=== PATIENT | female | born 1975 | race Caucasian/White ===

== ENCOUNTER 2024-12-10 12:13 | Emergency (ER) | payer BC, SELFPAY ==
[2024-12-10 13:12] VITALS: BP 167/70; PULSE 61; RESP 16; TEMP 36.1; O2SAT 100
--- NOTE | 2024-12-10 13:13 | ED_ITS ---
HPI - General Adult General Chief complaint: Skin/Abscess/Foreign Body Stated complaint: Peritonsillar Abscess needs drain DR miranda Time Seen by Provider: 12/10/24 20:49 History of Present Illness ED Provider: Ernesto MAHONEY narrative: The patient is a 49-year-old woman who has had a sore throat for about 4 days. Today she went to an urgent care where she was felt to have a left-sided peritonsillar abscess. She was referred to the emergency room. No definite fever. She has had a bad sore throat in the left side. She feels that she is draining pus. Related Data Previous Rx's ?Medication ?Instructions ?Recorded acetaminophen 500 mg capsule 1,000 mg (2 x 500 mg) PO Q8H PRN 12/10/24 fever or pain #14 caps amoxicillin 875 mg-potassium 1 tab PO BID #16 tabs 03/26 clavulanate 125 mg tablet ibuprofen 400 mg tablet 400 mg PO Q6H PRN pain #14 t abs 12/10/24 ondansetron 4 mg disintegrating 4 mg PO Q6H PRN nausea and 12/10/24 tablet vomiting #10 tabs Allergies Allergy/AdvReac Type Severity Reaction Status Date / Time No Known Allergies Allergy Verified 12/10/24 13:14 Review of Systems 2 Review of Systems: Yes all other systems are reviewed and are negative [facility] Social History Social History Use of substances other than those prescribed or required for medical reasons: No Advance Directives: No Advance Directives Information Provided: No Physical Exam ED Vital Signs: Vital Signs - 24 hr 12/10/24 13:12 12/10/24 19:43 12/10/24 20:55 Temperature 97.0 F 97.3 F 97.8 F Pulse Rate 61 72 60 Respiratory Rate 16 14 20 Blood Pressure 167/70 H 148/60 H 159/88 H Pulse Oximetry 100 100 100 Oxygen Delivery Method Room Air Room Air Room Air 12/10/24 23:21 12/11/24 00:09 Temperature 97.1 F 97.1 F Pulse Rate 52 52 Respiratory Rate 16 16 Blood Pressure 139/65 139/65 Pulse Oximetry 98 98 Oxygen Delivery Method Room Air Room Air BMI result Body Mass Index 2.6 Const Other: The patient is awake and alert. She does not appear in overt distress. She is pleasant and cooperative. Orientation/consciousness: patient oriented x3 HENMT Other: The patient has a lot of swelling and erythema to the left soft palate with deviation of the uvula to the right. There was no trismus. Eyes General: appearance normal, both eyes and all related structures Neck Other: There is a mildly swollen and tender left jugulodigastric lymph node. Resp Effort & Inspection: normal respiratory effort Auscultation: clear to auscultation bilaterally Cardio Rate: regular rate Rhythm: regular rhythm Heart sounds: S1 normal heart sound present and S2 normal heart sound present Skin Other: The skin is dry and unremarkable General skin exam: no rashes or lesions noted Neuro General: patient oriented x3, tone normal, moves all extremities, no focal motor deficits and CN's II-XI intact bilaterally Extrem Other: There is no calf swelling or tenderness. No asymmetry. No peripheral edema. Course Course Course Narrative: This is a rapid medical exam performed by Rajiv Augustin NP: Additional HPI, ROS, PE not included below will be deferred to primary provider. Patient is a 49-year-old female presenting with throat irritation since Tue, then worsened on . Sent from urgent care for peritonsillar abscess. Significant left sided peritonsillar swelling, difficulty opening mouth for assessment. Fevers. Plan: Labs Medications Administered Discontinued Medications Generic Name Dose Route Start Last Admin Trade Name Freq PRN Reason Stop Dose Admin Amoxicillin/Clavulanate Potassium 875 mg 12/10/24 22:52 12/11/24 00:02 Amoxicillin/Potassium Clav 875 Mg Tablet PO 12/10/24 22:53 875 mg ONCE ONE Administration Dexamethasone Sodium Phosphate 10 mg 12/10/24 20:59 12/10/24 21:15 Dexamethasone Sod Phosphate 10 Mg/Ml Vial IVPUSH 12/10/24 21:00 10 mg ONCE ONE Administration Ampicillin Sodium/Sulbactam 100 mls @ 200 mls/hr 12/10/24 20:59 12/10/24 21:58 Sodium 3 gm/ Sodium Chloride IV 12/10/24 21:28 Infused ONCE ONE Infusion Sodium Chloride 1,000 mls @ 999 mls/hr 12/10/24 21:00 12/10/24 22:19 Ns IV 12/10/24 22:00 Infused .Q1H1M CHRAO Infusion Sodium Chloride 1,000 mls @ 999 mls/hr 12/10/24 22:30 12/11/24 00:10 Ns IV 12/10/24 23:30 Infused .Q1H1M CHARO Infusion Ketorolac Tromethamine 15 mg 12/10/24 20:59 12/10/24 21:15 Ketorolac Tromethamine 15 Mg/Ml Vial IVPUSH 12/10/24 21:00 15 mg ONCE ONE Administration Lidocaine/Epinephrine 10 ml 12/10/24 20:58 12/10/24 21:16 Lidocaine Hcl 1%/Epi 1:100,000 10 Ml Vial INFILTRATI 12/10/24 20:59 10 ml ONCE ONE Administration Morphine Sulfate 4 mg 12/10/24 21:59 12/10/24 22:07 Morphine Sulfate 4 Mg/Ml Cartridge IVPUSH 12/10/24 22:00 4 mg ONCE ONE Administration Protocol Ondansetron HCl 4 mg 12/10/24 21:59 12/10/24 22:08 Ondansetron Hcl 4 Mg/2 Ml Vial IVPUSH 12/10/24 22:00 4 mg ONCE ONE Administration Procedures Abscess I/D Site: oral (Left peritonsillar abscess) Side (if applicable): left Local Anesthetic: lidocaine 1% and with epi Amount of anesthesia used (mL): 2 Technique: needle aspiration (After anesthetizing the mucosa of the left soft palate I passed an 18 gauge needle and aspirated 1 mL of pus) and incised with blade (After aspirating some pus with the an 18 gauge needle I made an incision with a number 11 blade to facilitate additional drainage) Sent for culture/gram staining?: No Irrigation: No Packing used?: none Medical Decision Making Medical Decision Making MDM Narrative: The patient is a 49-year-old female who presents with what seems to be a left- sided peritonsillar abscess. She describes the abscess already spontaneously draining somewhat. There is a an oppressive degree of erythema to the left soft palate and the uvula is pushed fairly far over to the right side. The patient is not have any trismus. The patient was given IV Unasyn, IV ketorolac, an IV dexamethasone as well as IV fluids. I explained the rationale for an attempt at a drainage procedure. The patient understood this and agreed. We then proceeded. I injected 1% lidocaine with epinephrine into the mucosa of the left soft palate in the maximal area of swelling using a 30 gauge needle. I then passed an 18 gauge needle through the area I had anesthetized. I was able to aspirate some pus. I then made a laceration with a 11. Blade to allow additional pus to drain. I probed the incision with a Jessica clamp to encourage additional drainage. The patient tolerated the procedure well. Although there is significant swelling to the left soft palate and uvula is deviated she has no trismus and she does not have a hot potato voice. She does not seem to have any impending airway issues. She has received a dose of steroids. I think the patient will be able to be managed at this point with oral antibiotics at home. She will be prescribed Augmentin. Lab Data 12/10/24 13:29 12/10/24 13:29 Labs: Lab Results 12/10/24 Range/Units 13:29 WBC 7.1 (4.8-10.8) X10*3/uL RBC 3.80 L (4.20-5.50) X10*6/uL Hgb 11.3 L (12.0-16.0) g/dl Hct 34.8 L (37.0-47.0) % MCV 91.6 (80.0-98.0) fL MCH 29.7 (27.0-33.0) pg MCHC 32.5 (31.0-35.0) g/dl RDW 13.3 (11.0-16.0) % Plt Count 260 (160-400) X10*3/uL MPV 10.0 (9.4-12.3) fL Immature Gran % (Auto) 0.3 (0.0-0.4) % Neut % (Auto) 69.4 (45-73) % Lymph % (Auto) 18.0 L (20-40) % [place] % (Auto) 10.8 (2-11) % Eos % (Auto) 0.9 (0-4) % Baso % (Auto) 0.6 (0-2) % Lymph # (Auto) 1.3 (1.2-4.9) X10*3/uL [place] # (Auto) 0.8 (0.1-1.2) X10*3/uL Eos # (Auto) 0.1 (0.0-0.4) X10*3/uL Baso # (Auto) 0.0 (0.0-0.2) X10*3/uL Abs Immat Gran (auto) 0.02 (0.00-0.03) X10*3/uL Absolute Neuts (auto) 4.9 (2.0-8.3) x10*3/uL Absolute Nucleated RBC 0.000 (0.0-0.012) X10*3/uL Nucleated RBC % (auto) 0.0 (0.0-0.2) /100WBC Sodium 141 (135-145) mmol/L Potassium 4.4 (3.3-5.1) mmol/L Chloride 108 (96-108) mmol/L Carbon Dioxide 25 (22-29) mmol/L Anion Gap 12 (12-20) BUN 4 L (9-16) mg/dL Creatinine 0.80 (0.5-1.4) mg/dL Estim Creat Clear Calc 10.7 Estimated GFR > 60 Random Glucose 98 (60-115) mg/dL Calcium 9.2 (8.4-10.2) mg/dL Total Bilirubin 0.7 (0.0-1.0) mg/dL AST 31 (5-31) U/L ALT 22 (0-31) U/L Alkaline Phosphatase 73 (39-117) U/L Total Protein 7.4 (6.5-8.0) g/dL Albumin 4.4 (3.5-5.0) g/dL Beta HCG, Quant < 2 mIU/mL Discharge Plan Discharge Clinical Impression: Peritonsillar abscess Patient Disposition: Home, Self-Care Instructions: Peritonsillar Abscess (ED) Additional Instructions: You seemed to have a left-sided peritonsillar abscess. This was already draining. Additionally an incision has been made to allow draining through another channel as well. At this point I think you should do well simply with the antibiotics. Please take the Augmentin 2 times a day as prescribed. You may use ibuprofen and acetaminophen as needed for discomfort. You may use the prescribed ondansetron as needed for any nausea. Please try to drink lot of fluids. If you feel like you have significant ongoing issues please try contacting the ENT office to see if you can be seen at the specialist office. Otherwise, if things seem to be doing fairly well it would be good for you to get a recheck at your regular doctor's office. If you are significantly worse please return to the emergency room. Prescriptions: New ibuprofen 400 mg tablet 400 mg PO Q6H PRN (Reason: pain) Qty: 14 0RF ondansetron 4 mg tablet,disintegrating 4 mg PO Q6H PRN (Reason: nausea and vomiting) Qty: 10 0RF acetaminophen 500 mg capsule 1,000 mg PO Q8H PRN (Reason: fever or pain) Qty: 14 0RF amoxicillin-pot clavulanate 875-125 mg tablet 1 tab PO BID Qty: 16 0RF Referrals: [facility] [Outside] Rex Limon MD [Physician, Family Practice] Interventions: ED Discharge Assessment Last Done: 12/11/24 00:09 Discharge Date/Time: 12/11/24 00:10 Print Language: [place]
[2024-12-10 13:33] LABS: MANUAL DIFF FLAG NO
[2024-12-10 13:38] LABS: Hematocrit 34.8 % (37.0-47.0); Hemoglobin 11.3 g/dl (12.0-16.0); Imm Gran Abs Auto 0.02 X10*3/uL (0.00-0.03); Imm Gran Pct Auto 0.3 % (0.0-0.4); Lymphocytes Absolute Auto 1.3 X10*3/uL (1.2-4.9); Mean Corpuscular HGB Conc 32.5 g/dl (31.0-35.0); Mean Corpuscular Hemoglobin 29.7 pg (27.0-33.0); Mean Corpuscular Volume 91.6 fL (80.0-98.0); NRBC Abs Auto 0.000 X10*3/uL (0.0-0.012); NRBC Pct Auto 0.0 /100WBC (0.0-0.2); Platelet Count 260 X10*3/uL (160-400); Red Blood Count 3.80 X10*6/uL (4.20-5.50); White Blood Count 7.1 X10*3/uL (4.8-10.8)
[2024-12-10 13:53] LABS: Alanine Aminotransferase 22 U/L (0-31); Albumin Level 4.4 g/dL (3.5-5.0); Alkaline Phosphatase 73 U/L (39-117); Anion Gap 12 (12-20); Aspartate Amino Transferase 31 U/L (5-31); Blood Urea Nitrogen 4 mg/dL (9-16); Calcium 9.2 mg/dL (8.4-10.2); Carbon Dioxide 25 mmol/L (22-29); Chloride 108 mmol/L (96-108); Creatinine Clr Calc Pharmacy 10.7; Estimated Glomerular Filt Rate > 60; Potassium 4.4 mmol/L (3.3-5.1); Sodium 141 mmol/L (135-145); Total Protein 7.4 g/dL (6.5-8.0)
[2024-12-10 19:43] VITALS: BP 148/60; PULSE 72; RESP 14; TEMP 36.3; O2SAT 100
--- OUTSIDE RECORDS SUMMARY | 2024-12-10 19:56 | XMS_ITS | Encounter Summary ---
Author Organization [facility] Address [address] [place] [id number] Phone Care Team Providers Care Cell Tuber Hand Name Role Phone Gwen Justin MD Unavailable [phone] Kory Christiansen MD Unavailable [phone] Rex Limon MD Unavailable [phone] Rhnia Arcos MD Unavailable [phone] Yumiko Gaitan Primary Care Provider Rex Limon MD Primary Care Provider [phone] Reason for Referral * MRI/CAT Scan - Closed Specialty Diagnoses / Procedures Referred By Contac t Referred To Contact Radiology Diagnoses Bilateral low back pain with sciatica, sciatica laterality unspecified, unspecified chronicity Procedures MRI Sacrum Jose Ny MD Phone: tel: fax: [email or web address] Referral ID Status Reason Start Date Expiration Date Visits Re quested Visits Authorized [id number] Closed 10/29/2019 04/26/2020 1 1 * MRI/CAT Scan - Closed Specialty Diagnoses / Procedures Referred By Contac t Referred To Contact Radiology Diagnoses Bilateral low back pain with sciatica, sciatica laterality unspecified, unspecified chronicity Procedures MRI Lumbar Spine Jose Ny MD Phone: tel: fax: [email or web address]:[email or web address] Referral ID Status Reason Start Date Expiration Date Visits Re quested Visits Authorized [id number] Closed 10/29/2019 04/26/2020 1 1 Encounter Details Date Type Department Care Team (Late st Contact Info) Description 11/06/2019 Ancillary Orders Virtual Department [address] [place] [id number] Jose Ny MD [address] [place] [id number] [email or web address] Bilateral low back pain with sciatica, sciatica laterality unspecified, unspecified chronicity Social History Tobacco Use Types Packs/Day Years Used Date Smoking Tobacco: Former Cigarettes Q uit: 2005 Smokeless Tobacco: Never Alcohol Use Standard Drinks/Week Comments Yes 0 (1 standard drink = 0.6 oz pur e alcohol) 3-5 drinks per week Comments No Sex and Gender Information Value Date Recorded Sex Assigned at Not on file Legal Sex Female 9:26 PM EDT Gender Identity Not on file Sexual Orientation Not on file Occupation Industry Job Start Date Job End Date Working Not on file Not on file Not on file documented as of this encounter Plan of Treatment Not on file documented as of this encounter Results * MRI LUMBAR SPINE (NEURO) WITHOUT CONTRAST (11/10/2019 7:54 AM EDT) Anatomical Region Laterality Modality L-spine Magnetic Resonan ce 11/10/2019 10:1 5 AM EDT Impressions 11/10/2019 10:25 AM EDT No disc herniations. Minimal bulging disc eccentric to the left side at L2-L3. No significant canal or neuroforaminal stenosis at any lumbar level. Narrative 11/10/2019 10:25 AM EDT EXAM: MRI LUMBAR SPINE (NEURO) WITHOUT INTRAVENOUS CONTRAST COMPARISON: None HISTORY: low back pain in lumbar spine and right SI joint for 8 months no relief with PT r/o disc herniation vs sacroiliitis TECHNIQUE: Exam performed on a 1.5 Keli high-field MRI scanner. Magnetic resonance imaging of the lumbar spine was performed WITHOUT injected contrast using standard department protocols. Sagittal T1, T2 and STIR, axial T1 and T2 sequences were obtained. FINDINGS: ALIGNMENT: Anatomic alignment is maintained. No anterior or posterior subluxations. VERTEBRAL BODIES: Vertebral body heights are maintained. Bone marrow signal pattern is within normal limits. INTERVERTEBRAL DISCS: Very minimal early desiccation changes at L2-L3 disc. No loss of height of the lumbar discs.. SPINAL CORD/CONUS: Included spinal cord has normal caliber and signal characteristics. The conus terminates normally at T12-L1. Level by level analysis yields the following: L1-2: No disc herniation. No significant canal or neuroforaminal stenosis. L2-3: Minimal bulging disc eccentric to the left side. No significant canal or neuroforaminal stenosis. L3-4: No disc herniation. No significant canal or neuroforaminal stenosis. L4-5: No disc herniation. No significant canal or neuroforaminal stenosis. L5-S1: No disc herniation. No significant canal or neuroforaminal stenosis. OTHERS:Visualized portions of the retroperitoneal structures are grossly unremarkable. Posterior paraspinal soft tissues are unremarkable. Procedure Note Phoebe Abdi MD - 11/10/2019 EXAM: MRI LUMBAR SPINE (NEURO) WITHOUT INTRAVENOUS CONTRAST COMPARISON: None HISTORY: low back pain in lumbar spine and right SI joint for 8 months norelief with PT r/o disc herniation vs sacroiliitis TECHNIQUE: Exam performed on a 1.5 Klei high-field MRI scanner. Magneticresonance imaging of the lumbar spine was performed WITHOUT injectedcontrast using standard department protocols. Sagittal T1, T2 and STIR,axial T1 and T2 sequences were obtained. FINDINGS: ALIGNMENT: Anatomic alignment is maintained. No anterior or posteriorsubluxations. VERTEBRAL BODIES: Vertebral body heights are maintained. Bone marrowsignal pattern is within normal limits. INTERVERTEBRAL DISCS: Very minimal early desiccation changes at L2-L3disc. No loss of height of the lumbar discs.. SPINAL CORD/CONUS: Included spinal cord has normal caliber and signalcharacteristics. The conus terminates normally at T12-L1. Level by level analysis yields the following: L1-2: No disc herniation. No significant canal or neuroforaminalstenosis. L2-3: Minimal bulging disc eccentric to the left side. No significantcanal or neuroforaminal stenosis. L3-4: No disc herniation. No significant canal or neuroforaminalstenosis. L4-5: No disc herniation. No significant canal or neuroforaminalstenosis. L5-S1: No disc herniation. No significant canal or neuroforaminalstenosis. OTHERS:Visualized portions of the retroperitoneal structures are grosslyunremarkable. Posterior paraspinal soft tissues are unremarkable. IMPRESSION: No disc herniations. Minimal bulging disc eccentric to the left side atL2-L3. No significant canal or neuroforaminal stenosis at any lumbarlevel. us Jose Ny MD IMG MR XSPECIALTY Final Resu lt * MRI SACRUM WITHOUT CONTRAST (11/10/2019 7:34 AM EDT) Anatomical Region Laterality Modality L-spine Magnetic Resonan ce 11/10/2019 10:0 9 AM EDT Impressions 11/10/2019 10:15 AM EDT Normal symmetric appearance of the bilateral sacroiliac joints. No signal abnormality to suggest sacroiliitis. POS [id number] Narrative 11/10/2019 10:15 AM EDT EXAM: MRI SACRUM WITHOUT INTRAVENOUS CONTRAST COMPARISON: MR of the pelvis/hip on August 05, 2015. TECHNIQUE: Study obtained at 1.5 Keli magnet unit. MR of the sacrum was obtained without administration of intravenous contrast. HISTORY: low back pain in lumbar spine and right SI joint for 8 months no relief with PT r/o disc herniation vs sacroiliitis r/o disc herniation vs sacroilitiis FINDINGS: Bilateral sacroiliac joints have normal and symmetric appearance. No abnormal signal intensity in any of the obtained sequences. Included musculature has normal and symmetric appearance. Partially included intramural uterine leiomyomas. Procedure Note Phoebe Abdi MD - 11/10/2019 EXAM: MRI SACRUM WITHOUT INTRAVENOUS CONTRAST COMPARISON: MR of the pelvis/hip on August 05, 2015. TECHNIQUE: Study obtained at 1.5 Keli magnet unit. MR of the sacrum wasobtained without administration of intravenous contrast. HISTORY: low back pain in lumbar spine and right SI joint for 8 months norelief with PT r/o disc herniation vs sacroiliitis r/o disc herniation vssacroilitiis FINDINGS: Bilateral sacroiliac joints have normal and symmetric appearance. Noabnormal signal intensity in any of the obtained sequences. Included musculature has normal and symmetric appearance. Partially included intramural uterine leiomyomas. IMPRESSION: Normal symmetric appearance of the bilateral sacroiliac joints. No signalabnormality to suggest sacroiliitis. POS [id number] Jose Ny MD IMG MR SPINE Final Result documented in this encounter Visit Diagnoses Diagnosis Bilateral low back pain with sciatica, sciatica laterality unspecified, unspecified chronicity Bilateral low back pain with sciatica, sciatica laterality unspecified, unspecified chronicity documented in this encounter Care Teams Cell Tuber Hand Relationship Specialty Start Date End Date Yumiko Gaitan PA [address] [place] [id number] PCP - General Unknown Provider Specialty 06/22/17 10/12/21 Rex Limon MD [address] [place] [id number] PCP - General Internal Medicine 10/13/21 Gwen Justin MD [address] [place] [address] [address] [place] [address] Historical LMR Provider 02/14/17 2 Kory Christiansen MD [address] [place] [address], [address] [place] [address] Historical LMR Provider 02/14/17 05/09/21 Rex Limon MD [address] [place] [id number] [email or web address] Historical LMR Provider 02/14/17 2 Rhina Arcos MD [address] [facility] [address] [place] [address] [email or web address] Historical LMR Provider 02/14/17 documented as of this encounter Additional Source Comments The information contained in this document represents components of the legal health record. It is not the complete legal health record.[facility]
[2024-12-10 20:55] VITALS: BP 159/88; PULSE 60; RESP 20; TEMP 36.6; O2SAT 100
[2024-12-10] MEDS: Lidocaine HCl 1%/Epi 1:100,000 10 ML VIAL INFILTRATI (21:16)
--- NOTE | 2024-12-10 21:29 | PC.NURSE ---
Iv placed, medicated per mar.
--- NOTE | 2024-12-10 22:16 | PC.NURSE ---
pt medicated per mar, abscess drained by provider, pt able to speak in full sentences, no sign of respiratory distreees
[2024-12-10 23:21] VITALS: BP 139/65; PULSE 52; RESP 16; TEMP 36.2; O2SAT 98
--- NOTE | 2024-12-11 00:08 | PC.NURSE ---
reviewed discharge instructions with pt. pt verbalized understanding, no sign of distress.
[2024-12-11 00:09] VITALS: BP 139/65; PULSE 52; RESP 16; TEMP 36.2; O2SAT 98
--- NOTE | 2024-12-11 00:09 | PC.NURSE ---
medicated per mar.
== END 2024-12-11 00:10 | disposition home or self-care (01) ==
PROVIDERS: Registered Nurse Emergency; Emergency Provider Emergency Medicine
DX: J36 Peritonsillar abscess (principal)
CPT/HCPCS: 10160; 36415; 42700; 80053; 84702; 85025; 96361; 96374; 96375; 99284; J0295; J1100; J1885; J2004; J2270; J2405